=== PATIENT | female | born 1985 | race Caucasian/White ===

== ENCOUNTER 2017-04-26 18:27 | Emergency (ER) | payer BC ==
[2017-04-26 19:14] VITALS: BP 158/102
--- NOTE | 2017-04-26 20:59 | UC ---
Lower Extremity/Ankle HPI - HPI Summary HPI Summary: Stubbed left great toe six days ago; "clear" discharge, erythema, pain, and swelling around lateral nail worsening since. Pateint has tried epsom salt soaks and heat without relief. Patient is a what job titles mean. No PCP. [ End ] - History of Current Complaint Chief Complaint: UCSkin Stated Complaint: RIGHT GREAT TOE Time Seen by Provider: 04/26/17 20:50 Hx Obtained From: Family/Emblem Cutter Hx Last Menstrual Period: 04/19/17 Onset/Duration: Sudden Onset Severity Initially: Moderate Severity Currently: Moderate Aggravating Factor(s): Standing Alleviating Factor(s): Rest Able to Bear Weight: Yes - Allergies/Home Medications Allergies/Adverse Reactions: Allergies Allergy/AdvReac Type Severity Reaction Status Date / Time No Known Allergies Allergy Verified 04/26/17 19:09 Home Medications: Home Medications Fexofenadine (NF) [Denise (NF)] 60 mg PO DAILY PRN 04/26/17 [History Confirmed 04/26/17] PMH/Surg Hx/FS Hx/Imm Hx Previously Healthy: Yes - Surgical History Surgical History: Yes Surgery Procedure, Year, and Place: , 2008, [place] - Social History Occupation: Employed Full-time Lives: With Family Alcohol Use: None Substance Use Type: None Smoking Status (MU): Never Smoked Tobacco - Immunization History Most Recent Influenza Vaccination: Not the 2016/2017 Season Review of Systems Skin: Other - redness right toe Motor: Decreased ROM - right toe Musculoskeletal: Decreased ROM - right toe Is Patient Immunocompromised?: No All Other Systems Reviewed And Are Negative: Yes Physical Exam Triage Information Reviewed: Yes Appearance: Well-Appearing, Pain Distress - mild Vital Signs: Initial Vital Signs Temp 98.3 F 04/26/17 19:08 Pulse 84 04/26/17 19:08 Resp 16 04/26/17 19:08 BP 158/102 04/26/17 19:08 Pulse Ox 100 04/26/17 19:08 Vital Signs Reviewed: Yes Respiratory Exam: Normal Cardiovascular Exam: Normal Musculoskeletal Exam: Normal Neurological Exam: Normal Psychological Exam: Normal Skin: Positive: Other - right lateral great toe with dried blood and erythema around the toe nail and into the 1st MTP. FROM of the toe. No streaking. No purulent discharge. Cap refill < 3 sec. Peripheral pulses brisk. Normal exam otherwise. Neg Valentín's. Lower Extremity Course/Dx - Course Course Of Treatment: She may need toe nail removed once infection and inflammation improved. Refer to Podiatry at this time. RTO if any concerns. - Differential Dx/Diagnosis Differential Diagnosis/HQI/PQRI: Contusion, Subungual Hematoma, Other - cellulitis of the toe Provider Diagnoses: Cellulitis / infected right great toe Discharge - Discharge Plan Condition: Good Disposition: HOME Prescriptions: Cephalexin CAP* [Keflex 500 CAP*] 500 mg PO TID #30 cap Patient Education Materials: Crush Injury (ED) Referrals: No Primary Care Phys,NOPCP [Primary Care Provider] - 4 Days Rehan Chang DPM [Doctor of Podiatric Medicine] - 4 Days (Podiatry referral ) Additional Instructions: You toenail at this time appears to be infected and you are advised to start antibiotics, continue to elevate the foot, soak three times a day and follow up with a vineyard tender for further evaluation.
[2017-04-26] MEDS ORDERED: Cephalexin CAP* 500 MG PO ONE (21:01)
== END 2017-04-26 21:14 | disposition home or self-care (01) ==
LOC: UCCORT 18:27
DX: L03.031 Cellulitis of right toe (principal)
CPT/HCPCS: 99202; A9270-GY; G0463